=== PATIENT | female | born 2005 | race Caucasian/White ===

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

== ENCOUNTER 2023-10-23 14:21 | Emergency (ER) | payer OTHER ==
[~2023-10-23] VITALS: Ht 165.1 cm; Wt 89.0 kg
[~2023-10-23 14:21] MED LIST changes: +FLUTICASONE PRO16 GM NAS; +LORATADINE10 MG PO
[2023-10-23 15:27] VITALS: BP 106/75
== END 2023-10-23 15:28 | disposition home or self-care (01) ==
LOC: ED 14:21
DX: M26.603 Bilateral temporomandibular joint disorder, unspecified (principal); F90.9 Attention-deficit hyperactivity disorder, unspecified type; H91.92 Unspecified hearing loss, left ear; Z79.51 Long term (current) use of inhaled steroids; Z79.899 Other long term (current) drug therapy
CPT/HCPCS: 99283

== ENCOUNTER 2023-10-31 18:07 | Emergency (ER) | payer OTHER ==
[~2023-10-31] VITALS: Ht 165.1 cm; Wt 89.7 kg
--- OUTSIDE RECORDS SUMMARY | 2023-10-31 18:14 | XMS ---
PreManage Notification: LAURA SUERO Security Supervisor Audit Clerks Events No recent Security Events currently on file CRITERIA MET - [facility] - 2 Visits in 30 Days CARE PROVIDERS -, Emily- Dentist: Pre K Lead Teacher [facility] PHONE: [phone] ROD AGUILAR Family [facility] Current PHONE: Unknown Care Guidelines exist for the following facilities: [facility] ( 04/29/2019 ) Donte VISIT COUNT (12 MO.) [address] [facility] TOTAL 2 NOTE: Visits indicate total known visits. ED/UCC VISIT TRACKING (12 MO.) 10/31/2023 18:08 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
[2023-10-31] MEDS ORDERED: FLUOXETINE HCL10 MG PO (19:34)
[2023-10-31 19:35] LABS: BILIRUBIN, URINE NEGATIVE (negative); BLOOD/HGB, URINE MODERATE (Negative); KETONE, URINE NEGATIVE (Negative); LEUK ESTERASE, URINE NEGATIVE (negative); NITRITE, URINE NEGATIVE (negative)
[2023-10-31 19:41] LABS: EPITHELIAL CELLS, URINE SQUAMOUS 2+ /lpf (0-1+)
[2023-10-31 19:42] LABS: BACTERIA, URINE RARE /hpf (negative); CASTS, URINE NONE SEEN \\lpf; CRYSTALS, URINE NONE SEEN (0-1+)
[2023-10-31 19:43] LABS: REFLEX CULTURE, URINE No (No)
[2023-10-31 19:53] VITALS: BP 124/76
== END 2023-10-31 19:53 | disposition home or self-care (01) ==
LOC: ED 18:07
PROVIDERS: Internal Medicine
DX: N92.0 Excessive and frequent menstruation with regular cycle (principal); F90.9 Attention-deficit hyperactivity disorder, unspecified type; Z79.899 Other long term (current) drug therapy
CPT/HCPCS: 81001; 84703; 99284

== ENCOUNTER 2024-01-19 08:15 | Day surgery (SDC) | payer OTHER ==
[~2024-01-19] VITALS: Ht 165.1 cm; Wt 90.9 kg
[~2024-01-19 08:15] MED LIST changes: +CEFAZOLIN SODIUM 2 GM/20 ML SYR IV SCH; +FLONASE ALLERG9.9 ML; +FLUOXETINE HCL10 MG PO; +IBLOOD GLUCOSE TEST STRIP 1 EA TEST VI PRN; +LACTATED RINGER'S 1,000 ML IV SCH; +LIDOCAINE HCL 1% 5 ML SDV INJ ONE
[2024-01-19 08:47] VITALS: BP 113/71
[2024-01-19] MEDS ORDERED: DEXAMETHASONE SOD PHOS 4 MG/ML VIAL ONE ×3 (09:07→11:44)
[2024-01-19] MEDS ORDERED: SODIUM CHLORIDE 0.9% 100 ML IV ONE (09:08)
[2024-01-19] MEDS ORDERED: BUPIVACAINE HCL 0.5% 10 ML SDV ONE (09:08)
[2024-01-19] MEDS ORDERED: LIDOCAINE HCL 2% 5 ML SDV ONE ×2 (09:15→10:17)
[2024-01-19] MEDS ORDERED: MIDAZOLAM HCL 2 MG/2 ML VIAL ONE (09:15)
[2024-01-19] MEDS ORDERED: propofoL 200 MG/20 ML VIAL ONE (10:17)
[2024-01-19] MEDS ORDERED: ondansetron HCL 4 MG/2 ML VIAL ONE (10:17)
[2024-01-19] MEDS ORDERED: NALOXONE HCL 0.4 MG SYR IV PRN ×2 (10:30→12:00)
[2024-01-19] MEDS ORDERED: HYDROCODONE/ACETA 5/325 TAB PO PRN (10:30)
[2024-01-19] MEDS ORDERED: fentaNYL citrate 100 MCG/2 ML VIAL ONE (11:05)
[2024-01-19] MEDS ORDERED: CELECOXIB200 MG PO (11:24)
[2024-01-19] MEDS ORDERED: HYDROCODON-ACE1 EA10 PO (11:24)
[2024-01-19] MEDS ORDERED: Ropivacaine HCl 0.5% 30 ML VIAL ONE (11:24)
[2024-01-19] MEDS ORDERED: ACETAMINOPHEN 1,000 MG/100 ML VIAL ONE ×2 (11:53→11:58)
[2024-01-19] MEDS ORDERED: KETOROLAC TROMETHAMINE 30 MG/ML VIAL ONE (11:53)
[2024-01-19] MEDS ORDERED: fentaNYL citrate 50 MCG/ML SDV IV PRN (12:00)
[2024-01-19] MEDS ORDERED: ACETAMINOPHEN 1,000 MG/100 ML VIAL IV ONE (12:00)
[2024-01-19] MEDS ORDERED: KETOROLAC TROMETHAMINE 30 MG/ML VIAL IV PRN (12:00)
[2024-01-19] MEDS ORDERED: HYDROmorphone HCL 1 MG/ML SYR IV PRN (12:00)
[2024-01-19] MEDS ORDERED: ondansetron HCL 4 MG/2 ML VIAL IV PRN (12:00)
[2024-01-19] MEDS ORDERED: droPERidol 5 MG/2 ML VIAL IV PRN (12:00)
[2024-01-19] MEDS ORDERED: IBLOOD GLUCOSE TEST STRIP 1 EA TEST VI PRN (12:00)
[2024-01-19 12:24] VITALS: BP 110/68
--- NOTE | 2024-01-19 12:28 | NUR ---
LE 1222 PATIENT BACK TO ROOM 5. VITAL SIGNS COMPLETED. PATIENT ALERT AND ORIENTED. BREATHING EQUAL AND UNLABORED. OXYGEN SATURATIONS ABOVE 90% ON ROOM AIR. PATIENT STATES "MY ARM FEELS NUMB." PATIENT DENIES BEING NAUSEATED. ARM IN SLING, ELEVATED. IVF INFUSING. SCD'S ON. SURGICAL SITE CLEAN, DRY AND INTACT. CALL LIGHT WITHIN REACH. NO FUTHER NEEDS. NO QUESITIONS AT THIS TIME.
--- NOTE | 2024-01-19 12:35 | NUR ---
01/19/24 1235 Becky Reardon 1146 PT ARRIVED IN PACU CRYING AND C/O R HAND PINKY PAIN 7/10. ARM ELEVATED IN SLING AND PILLOW PLACED UNDERNEATH. 1150 VERBAL ORDERS GIVEN FROM ANESTHESIA. 1155 TORADOL 30MG GIVEN IV. 1156 TYLENOL 1 GM GIVEN IV. 1200 C/O R HAND PAIN IN PINKY 9/10. CRYING. 1205 FENTANYL 50MCG GIVEN IVP. 1210 SIPPING ON WATER. 1215 PAIN DOWN TO 0/10. STATES "IT FEELS NUMB NOW." 1222 TO DS. REPORT GIVEN TO RN.
--- NOTE | 2024-01-19 13:20 | NUR ---
ANSWERED PT CALL LIGHT D/T REPORT OF NEED TO URINE VOID. PT URINE VOID 450 ML OF CLEAR/YELLOW URINE W/SMALL AMOUNT BLOOD (PT MENSTRUATING). PT STATES NO DIZZINESS OR NAUSEA W/AMBULATION. PT NOW BACK IN ROOM AND GETTING DRESSED W/BOYFRIEND ASSISTANCE. PT REPORTS NO FURTHER QUESTIONS OR NEEDS AT THIS TIME. CALL LIGHT WITHIN REACH.
[2024-01-19 13:34] VITALS: BP 125/69
--- NOTE | 2024-01-19 13:45 | NUR ---
IN PT ROOM FOR DISCHARGE EDUCATION. PT AND PT BOYFRIEND STATE VERBAL UNDERSTANDING AND NO FURTHER QUESTIONS OR NEEDS AT THIS TIME. IV DC'ED, GAUZE AND COBAN IN PLACE. SLING IN PLACE W/ICE PACK. PT OFF OF UNIT VIA WC TO PASSENGER SIDE OF VEHICLE BY KEON MCMAHAN. ALL BELONGINGS IN PT POSSESSION AT THIS TIME.
--- NOTE | 2024-01-19 14:48 | OR ---
[facility] [address] [place], [place] [address] Signed DATE OF OPERATION: 01/19/2024 SURGEON: Rosario Coleman MD PREOPERATIVE DIAGNOSIS: Displaced right 5th metacarpal fracture. POSTOPERATIVE DIAGNOSIS: Displaced right 5th metacarpal fracture. PROCEDURE PERFORMED: Open reduction and internal fixation, right 5th metacarpal. PERSONNEL CONSULTANT: Gema Hernandez PA-C. Gema was present and critical for all portions of procedure. ANESTHESIA: General. BLOOD LOSS: Minimal. TOURNIQUET TIME: Zero. IMPLANTS: Synthes 3.0 x 36 headless screw. BRIEF HISTORY: Laura is a 18-year-old female with fracture of her 5th metacarpal that was displaced and angulated with a sharp dorsal spike. Risks and benefits of operative treatment were discussed with her and she elected to proceed. DESCRIPTION OF PROCEDURE: Once consent was obtained, she was taken to the operating room. After adequate anesthesia, she was placed on the operating room table with a hand table. The arm was prepped and draped in a standard sterile fashion. The fracture was identified on the image intensifier and closed reduction was unable to get according it needed to be. A percutaneous clamp was then introduced and the fracture was reduced and held with a Electronically Signed By: ROSARIO COLEMAN MD 01/19/24 1448 PATIENT NAME: LAURA SUERO OPERATIVE REPORT DATE OF : 03 REPORT #: [id number] PHYSICIAN: ROSARIO COLEMAN MD PCP: ANNELISE GRANADOS PA-C REPORT IS CONFIDENTIAL AND NOT TO BE RELEASED WITHOUT AUTHORIZATION [facility] [address] [address] [place] [place] [address] Signed clamp. The guide pin for the 3.0 headless screw set was advanced from the metacarpal head across the fracture engaging the body of the metacarpal proximally. A 36 screw was selected and after overdrilling the guide pin, the headless screw was placed over the guide pin and advanced until it was well-seated beneath the articular surface. Biplanar radiographs showed good reduction, good placement of the screw and good countersink. The wound was copiously irrigated with normal saline and closed with LiquiBand and Steri- Strips. She was placed in an ulnar gutter splint, taken to the recovery room in satisfactory condition. All sponge, needle, and instrument counts were correct. Rosario Coleman MD BA/MODL /[id number] Copies: ~ Electronically Signed By: ROSARIO COLEMAN MD 01/19/24 1448 PATIENT NAME: LAURA SUERO OPERATIVE REPORT DATE OF : 03 REPORT #: [id number] PHYSICIAN: ROSARIO COLEMAN MD PCP: ANNELISE GRANADOS PA-C REPORT IS CONFIDENTIAL AND NOT TO BE RELEASED WITHOUT AUTHORIZATION
[2024-01-19] MEDS ORDERED: CELECOXIB 200 MG CAP PO SCH (17:00)
== END 2024-01-19 13:45 | disposition home or self-care (01) ==
LOC: DS 08:15
PROVIDERS: ATTEND Specialist
PROC: 0PSP04Z Reposition Right Metacarpal with Internal Fixation Device, Open Approach (ICD-10-PCS; principal; 2024-01-19 10:45)
DX: S62.326A Displaced fracture of shaft of fifth metacarpal bone, right hand, initial encounter for closed fracture (principal); X58.XXXA Exposure to other specified factors, initial encounter
CPT/HCPCS: 73120; 84703; J0131; J0690; J1100; J1885; J2001; J2250; J2405; J2704; J2795; J3010; J7121